=== PATIENT | female | born 1995 | race Caucasian/White ===

== ENCOUNTER 2024-03-09 21:30 | Emergency (ER) | payer OTHER ==
[~2024-03-09] VITALS: Ht 162.6 cm; Wt 73.0 kg
[2024-03-09 21:35] VITALS: O2SAT 99
[2024-03-09] MEDS: METHYLPREDNISOLONE SOD SUCC 125MG/2ML (ACT-O-VIAL) IV STA (22:35)
[2024-03-09] MEDS: SODIUM CHLORIDE 0.9% 1,000 ML IV ONE (22:35)
[2024-03-09 23:00] VITALS: PULSE 110; RESP 20
[2024-03-09] MEDS: RACEPINEPHRINE 2.25% 0.5ML NEB VIAL HHN ONE (23:00)
[2024-03-09] MEDS ORDERED: P50 MT (23:22)
[2024-03-09] MEDS ORDERED: DIPH25CA83 MT (23:22)
[2024-03-09] MEDS ORDERED: EPIN0.3P3 IM (23:22)
[2024-03-09 23:55] VITALS: BP 140/65; PULSE 90; RESP 18; TEMP 98.2
== END 2024-03-09 23:55 | disposition home or self-care (01) ==
LOC: ER 21:30
DX: T78.40XA Allergy, unspecified, initial encounter (principal); R06.02 Shortness of breath; Z88.0 Allergy status to penicillin; X58.XXXA Exposure to other specified factors, initial encounter
CPT/HCPCS: 94640; 96361; 96374; 99283; J2919; J7030; Z7610 ×4